=== PATIENT | female | born 1960 | race Caucasian/White ===

== ENCOUNTER 2018-01-06 03:24 | Emergency (ER) | payer OTHER ==
[~2018-01-06] VITALS: Ht 165.1 cm; Wt 85.7 kg
[~2018-01-06 03:24] MED LIST: AMIT50 PO; Aspir 8181 MG PO; BISA5EC PO; Bactrim Ds Tab1 EACH PO; CITRATE OF MAG296 ML PO; CLON.1 PO; CYCL10 PO; HYDCHL25 PO; IBUP600 PO; KETO10 PO; LOSA25 PO; LOSARTAN-HCTZ1 EACH PO; Nitrostat0.4 MG SL; OMEPRAZOLE MAGN20 MG PO; OXYB5 PO; OXYC5; Percocet 5-3251 EACH PO; Pyridium100 MG; TAMS.4ER PO
[2018-01-06] MEDS ORDERED: CYCL10 PO (03:41)
[2018-01-06] MEDS ORDERED: FURO20 PO (03:41)
[2018-01-06] MEDS ORDERED: K-Dur10 MEQ (03:41)
[2018-01-06 04:02] LABS: BASOPHILS PERCENT AUTO 1 % (0-2); EOSINOPHILS ABSOLUTE AUTO 0.45 K/mm3 (0.00-0.68); EOSINOPHILS PERCENT AUTO 4 % (0-6); Hematocrit 42.7 % (33.0-51.0); Hemoglobin 14.8 g/dL (11.5-16.0); IMMATURE GRAN ABSOLUTE AUTO 0.03 K/mm3 (0.00-0.10); IMMATURE GRAN PERCENT AUTO 0 % (0-1); LYMPHOCYTES PERCENT AUTO 42 % (21-46); MONOCYTES ABSOLUTE AUTO 0.77 K/mm3 (0.16-1.47); MONOCYTES PERCENT AUTO 7 % (4-13); Mean Corpuscular HGB 32.7 pg (26.0-34.0); Mean Corpuscular HGB Conc 34.7 g/dL (31.5-36.5); Mean Corpuscular Volume 94 fL (80-100); Mean Platelet Volume 10.8 fL (9.1-12.4); NEUTROPHILS PERCENT AUTO 46 % (41-73); Platelet Count 344 K/mm3 (150-400); RDW Coefficient Variation 12.5 % (11.7-14.2); RDW Standard Deviation 43.5 fL (35.1-46.3); Red Blood Cell Count 4.53 M/mm3 (3.80-5.20); White Blood Cell Count 11.65 K/mm3 (4.00-11.30)
[2018-01-06 04:29] LABS: Alanine Aminotransfer (ALT/SGP 52 U/L (12-78); Albumin, Blood 4.1 g/dL (3.4-5.0); Albumin/Globulin Ratio 1.1 (0.8-1.8); Alk Phos 87 U/L (50-136); Anion Gap 11 mmol/L (6-16); Aspartate Aminotrans (AST/SGOT 30 U/L (12-37); Bilirubin, Total 0.4 mg/dL (0.1-1.0); Blood Urea Nitrogen 21 mg/dL (8-24); Bun/Creatinine Ratio 17.8 (12.0-20.0); CO2, Blood 27 mmol/L (21-32); Calcium, Blood 8.5 mg/dL (8.5-10.1); Chloride, Blood 100 mmol/L (98-108); Creatinine, Blood 1.18 mg/dL (0.40-1.00); Globulin, Blood 3.8 g/dL (2.2-4.0); Glomerular Filtration Rate 50 (60-); Glucose, Blood 112 mg/dL (70-99); Potassium, Blood 2.8 mmol/L (3.5-5.5); Sodium, Blood 138 mmol/L (136-145); Total Protein, Blood 7.9 g/dL (6.4-8.2); Troponin I <0.015 ng/mL (0.000-0.040)
== END 2018-01-06 08:18 | disposition home or self-care (01) ==
LOC: ER 03:24
PROVIDERS: Emergency Medicine
DX: R55 Syncope and collapse (principal); S13.9XXA Sprain of joints and ligaments of unspecified parts of neck, initial encounter; R07.9 Chest pain, unspecified; I10 Essential (primary) hypertension; F17.210 Nicotine dependence, cigarettes, uncomplicated; Z79.899 Other long term (current) drug therapy; W22.8XXA Striking against or struck by other objects, initial encounter
CPT/HCPCS: 36415; 71046; 72125; 80053; 84484; 85025; 93005; 93010; 96361; 96374; 96375; 99285-25; J1885; J2270; J7030

== ENCOUNTER 2019-01-04 10:00 | Emergency (ER) | payer OTHER ==
[~2019-01-04] VITALS: Ht 165.1 cm; Wt 86.2 kg
[~2019-01-04 10:00] MED LIST changes: +FURO20 PO; +K-Dur10 MEQ
[2019-01-04] MEDS ORDERED: KETO10 PO (10:21)
[2019-01-04] MEDS ORDERED: GABA300 PO (10:21)
[2019-01-04] MEDS ORDERED: VERA80 PO (10:21)
[2019-01-04] MEDS ORDERED: Ultram50 MG PO (10:52)
[2019-01-04] MEDS ORDERED: Mobic7.5 MG PO (10:52)
== END 2019-01-04 11:00 | disposition home or self-care (01) ==
LOC: ER 10:00
DX: G89.29 Other chronic pain (principal); M25.561 Pain in right knee; I10 Essential (primary) hypertension; F17.210 Nicotine dependence, cigarettes, uncomplicated; Z79.899 Other long term (current) drug therapy
CPT/HCPCS: 29505; 99283-25

== ENCOUNTER 2019-02-15 11:38 | Day surgery (SDC) | payer OTHER ==
[~2019-02-15] VITALS: Ht 165.1 cm; Wt 87.3 kg
[~2019-02-15 11:38] MED LIST changes: +CYCL10; +DICLO GEL1 EACH; +FURO20; +GABA300 PO; +Mobic7.5 MG PO; +POTA10T; +Ultram50 MG PO; +VERA80 PO
== END 2019-02-15 15:35 | disposition home or self-care (01) ==
LOC: ORSCSDS 11:38
PROVIDERS: Orthopaedic Surgery
PROC: 0SBC4ZZ Excision of Right Knee Joint, Percutaneous Endoscopic Approach (ICD-10-PCS; principal; 2019-02-15 13:45)
DX: S83.249A Other tear of medial meniscus, current injury, unspecified knee, initial encounter (principal); J45.909 Unspecified asthma, uncomplicated; B19.10 Unspecified viral hepatitis B without hepatic coma; Z79.899 Other long term (current) drug therapy; F17.210 Nicotine dependence, cigarettes, uncomplicated
CPT/HCPCS: J0171; J0690; J1100; J1885; J2250; J2405; J2704; J3010; J7120

== ENCOUNTER → 2022-04-29 | Outpatient (CLI) | payer OTHER ==
[2022-04-29 10:06] LABS: BASOPHILS PERCENT AUTO 1 % (0-2); EOSINOPHILS ABSOLUTE AUTO 0.28 K/mm3 (0.00-0.68); EOSINOPHILS PERCENT AUTO 3 % (0-6); Hematocrit 37.7 % (33.0-51.0); Hemoglobin 13.3 g/dL (11.5-16.0); IMMATURE GRAN ABSOLUTE AUTO 0.02 K/mm3 (0.00-0.10); IMMATURE GRAN PERCENT AUTO 0 % (0-1); LYMPHOCYTES ABSOLUTE AUTO 2.84 K/mm3 (0.84-5.20); LYMPHOCYTES PERCENT AUTO 34 % (21-46); MONOCYTES ABSOLUTE AUTO 0.61 K/mm3 (0.16-1.47); MONOCYTES PERCENT AUTO 7 % (4-13); Mean Corpuscular HGB Conc 35.3 g/dL (31.5-36.5); Mean Corpuscular Volume 91 fL (80-100); Mean Platelet Volume 11.3 fL (9.1-12.4); NEUTROPHILS ABSOLUTE AUTO 4.61 K/mm3 (1.96-9.15); NEUTROPHILS PERCENT AUTO 55 % (41-73); Platelet Count 316 K/mm3 (150-400); RDW Coefficient Variation 13.1 % (11.7-14.2); RDW Standard Deviation 43.4 fL (35.1-46.3); Red Blood Cell Count 4.15 M/mm3 (3.80-5.20); White Blood Cell Count 8.46 K/mm3 (4.00-11.30)
[2022-04-29 11:08] LABS: Albumin, Blood 3.7 g/dL (3.4-5.0); Albumin/Globulin Ratio 1.2 (0.8-1.8); Bilirubin, Total 0.3 mg/dL (0.1-1.0); Bun/Creatinine Ratio 11.1 (12.0-20.0); Calcium, Blood 9.1 mg/dL (8.5-10.1); Creatinine, Blood 0.99 mg/dL (0.40-1.00); Potassium, Blood 3.9 mmol/L (3.5-5.5); Total Protein, Blood 6.7 g/dL (6.4-8.2)
== END | disposition home or self-care (01) ==
LOC: LAB SHORT 10:00
PROVIDERS: Chiropractor
DX: R07.9 Chest pain, unspecified (principal)
CPT/HCPCS: 80053; 84484; 85025; 85379

== ENCOUNTER → 2022-06-24 | Outpatient (CLI) | payer OTHER ==
[2022-06-24 11:00] LABS: BASOPHILS ABSOLUTE AUTO 0.05 K/mm3 (0.00-0.23); BASOPHILS PERCENT AUTO 1 % (0-2); EOSINOPHILS ABSOLUTE AUTO 0.22 K/mm3 (0.00-0.68); EOSINOPHILS PERCENT AUTO 3 % (0-6); Hematocrit 38.8 % (33.0-51.0); Hemoglobin 13.6 g/dL (11.5-16.0); IMMATURE GRAN ABSOLUTE AUTO 0.02 K/mm3 (0.00-0.10); IMMATURE GRAN PERCENT AUTO 0 % (0-1); LYMPHOCYTES ABSOLUTE AUTO 2.13 K/mm3 (0.84-5.20); LYMPHOCYTES PERCENT AUTO 28 % (21-46); MONOCYTES ABSOLUTE AUTO 0.72 K/mm3 (0.16-1.47); MONOCYTES PERCENT AUTO 10 % (4-13); Mean Corpuscular HGB 31.7 pg (26.0-34.0); Mean Corpuscular HGB Conc 35.1 g/dL (31.5-36.5); Mean Corpuscular Volume 90 fL (80-100); Mean Platelet Volume 10.8 fL (9.1-12.4); NEUTROPHILS ABSOLUTE AUTO 4.36 K/mm3 (1.96-9.15); NEUTROPHILS PERCENT AUTO 58 % (41-73); Platelet Count 292 K/mm3 (150-400); RDW Coefficient Variation 12.3 % (11.7-14.2); RDW Standard Deviation 40.7 fL (35.1-46.3); Red Blood Cell Count 4.29 M/mm3 (3.80-5.20)
[2022-06-24 11:52] LABS: Albumin, Blood 3.5 g/dL (3.4-5.0); Albumin/Globulin Ratio 1.1 (0.8-1.8); Bilirubin, Total 0.4 mg/dL (0.1-1.0); Bun/Creatinine Ratio 14.7 (12.0-20.0); Calcium, Blood 8.7 mg/dL (8.5-10.1); Creatinine, Blood 0.75 mg/dL (0.40-1.00); Globulin, Blood 3.3 g/dL (2.2-4.0); Potassium, Blood 3.7 mmol/L (3.5-5.5); Total Protein, Blood 6.8 g/dL (6.4-8.2)
== END | disposition home or self-care (01) ==
LOC: LAB SHORT 10:55
PROVIDERS: Chiropractor
DX: R10.11 Right upper quadrant pain (principal)
CPT/HCPCS: 80053; 83690; 85025